=== PATIENT | female | born 1960 | race Caucasian/White ===

== ENCOUNTER → 2016-12-18 | Outpatient (CLI) | payer BC ==
[2016-12-18 21:37] LABS: SYNOVIAL FLUID APPEARANCE CLEAR; SYNOVIAL FLUID COLOR YELLOW; SYNOVIAL FLUID MONONUC RELAT 77.7 %; SYNOVIAL FLUID POLYNUC RELAT 22.3 %
== END | disposition home or self-care (01) ==
LOC: C.LAB 19:27
PROVIDERS: ATTEND Physician Assistant
DX: S89.91XA Unspecified injury of right lower leg, initial encounter (principal); X58.XXXA Exposure to other specified factors, initial encounter